=== PATIENT | male | born 1950 | race Caucasian/White ===

== ENCOUNTER 2021-06-07 06:40 | Day surgery (SDC) | payer MEDICARE, BC, SELFPAY ==
--- NOTE | 2021-06-07 | PATH_ITS ---
[facility] Accession Number: [id number] . 01 Material submitted: . PART A: colon - ASCENDING POLYP X1 PART B: hepatic flexure - HEPATIC FLEXURE POLYP PART C: sigmoid colon - SIGMOID POLYP X1 . 02 Diagnosis: A. Ascending Colon Polyp, Biopsy: Tubular adenoma. . B. Hepatic Flexure Polyp, Biopsy: Vegetable material. No tissue identified. . C. Sigmoid Colon Polyp, Biopsy: Tubular adenoma. MRV 06/09/2021 1030 Local . 02 Electronically signed: . Navarro Felix MD, PhD, Pathologist NPI- [id number] . 01 Gross description: . Part A: ASCENDING POLYP X1: Received in formalin is 1 fragment(s) of gentile, soft tissue measuring 0.4 x 0.4 x 0.2 cm submitted entirely in 1 cassette(s) Part B: HEPATIC FLEXURE POLYP: Received in formalin are minute fragment(s) of gentile, soft tissue measuring 0.3 x 0.3 x 0.1 cm in aggregate submitted entirely in 1 cassette(s) Part C: SIGMOID POLYP X1: Received in formalin is 1 fragment(s) of gentile, soft tissue measuring 0.5 x 0.3 x 0.2 cm submitted entirely in 1 cassette(s) /QBJ 06/08/2021 0638 Local . 02 Pathologist provided ICD-10: D12.2, D12.5 . 02 CPT . 001686, [id number], [id number] Performed at: 01 [facility] [address], [place], [place] [id number] MD Shai Winter MD Phone: [phone] Performed at: [address] [facility] [address] [address] [id number] MD Rosaura Aguilar MD Phone: [phone]
[2021-06-07] MEDS: SODIUM CHLORIDE 0.9% 1,000 ML 84 ML IV (07:19)
[2021-06-07 07:25] VITALS: BMI 30.1
[2021-06-07 07:30] VITALS: BP 123/76; PULSE 76; RESP 18; TEMP 36.6; O2SAT 98
[2021-06-07 07:39] LABS: COVID19 -Nasal RAPID Negative (Negative)
[2021-06-07 07:40] VITALS: BMI 30.1
--- NOTE | 2021-06-07 08:02 | PM.HP.1 ---
History of Present Illness History of Present Illness Date Patient Seen: 06/07/21 Time Patient Seen: 08:02 Chief complaint: SCREENING COLONOSCOPY Narrative: Asymptomatic Patient History Medical History Gout Hypothyroidism Family & Social History Social History: household members spouse Tobacco & Substance use: Smoking Status Former smoker alcohol intake current alcohol intake frequency a few times a month Substance Use Type does not use Meds Home Medications and Allergies Home Medications Medication Instructions Recorded Confirmed Type allopurinol 300 mg tablet 300 mg PO DAILY 06/06/21 06/07/21 History cyclobenzaprine 10 mg tablet 10 mg PO PRN PRN 06/06/21 06/07/21 History levothyroxine 175 mcg tablet 175 mcg PO DAILY 06/06/21 06/07/21 History Allergies Allergy/AdvReac Type Severity Reaction Status Date / Time No Known Drug Allergies Allergy Verified 06/07/21 07:13 Review of Systems Review of Systems ROS: Yes All systems reviewed with the patient and are negative except as otherwise documented Exam Vital Signs (past 8 hours): Oxygen Delivery Method Room Air Const General: cooperative and comfortable Orientation: alert HENMT Head: normocephalic Ears: external ears normal Nose: external nose normal Face and sinus: normal facial exam Mouth: oral mucosae normal Eyes General: appearance normal, both eyes and all related structures Neck Neck: normal visual inspection Chest Chest: normal inspection of the chest Resp Effort & Inspection: normal respiratory effort Cardio Rate: regular rate GI Inspection: normal to inspection Skin General: no rashes or lesions noted and No jaundice Neuro General: patient alert and moves all extremities Cognition: normal cognition Speech: speech normal Extrem General: no pedal edema Psych Appearance: grossly normal Objective Labs Labs: Laboratory Results - last 24 hr 06/07/21 07:08 SARS-CoV-2 (PCR) Negative Assessment & Plan Assessment & Plan narrative: 71-year-old male here for colon cancer screening. Colonoscopy is planned for today. Time Spent With Patient Critical Care time: I spent a total of [] minutes of critical care time on this patient's care today; this time is exclusive of procedural time.
--- NOTE | 2021-06-07 08:04 | PM.PREOP ---
Pre-operative Note COVID-19 COVID-19 status: Negative Result date/Date tested (Pos, Neg/Pending): 06/07/21 Interval Note History & Physical reviewed/Exam performed by Physician: Yes Changes to H&P: No H&P completed within 30 days and has changed as indicated here:: Today ASA Class (for procedural sedation): II
--- NOTE | 2021-06-07 08:54 | P.OP.COLON_ITS ---
Operative Date/Time/Diagnoses Date of procedure: 06/07/21 Time of procedure: 08:54 Pre-op diagnosis: Colon cancer screening Post-op diagnosis: same Procedure & Clinicians Study performed: Colonoscopy with hot and cold snare polypectomy Same procedure as scheduled: Yes Indications: Colon cancer screening Surgeon: Mo London Procedure Notes SCOAP/Timeout: Done Procedure in detail: After the risks and benefits were explained, written and verbal informed consent was obtained. The patient was brought into the procedure room and placed into the left lateral decubitus position. Conscious sedation medication was applied as per nursing documentation. Digital rectal examination was accomplished. The scope was introduced into the patient and advanced under direct visualization to the cecum as identified by the appendiceal orifice and ileocecal valve. The scope was slowly withdrawn to carefully examine the mucosa for any defects or lesions. Comprehensive imaging was accomplished throughout the rectum including the dentate line. The colon was decompressed, the scope was then removed from the patient who tolerated the procedure well. Scope withdrawal time: 21 minutes Sedation minutes: 39 Complications: none Impression: Grade 1 internal hemorrhoids were noted. There was some diverticulosis in the sigmoid. There was a diminutive polyp in the ascending and hepatic flexure region removed with cold snare. There was a slightly larger perhaps 6-7 mm polyp sessile in the sigmoid removed with hot snare. No additional pathology was appreciated throughout. Withdrawal time was prolonged secondary to a search for the final polyp in the sigmoid which was seen initially on entry and d ifficult to find on the way out Endoscopic diagnosis 1. Colon polyps 2. Grade 1 hemorrhoids 3. Diverticulosis Post-procedure Plan for aftercare: 1. Await histopathology 2. If all the polyps return as adenomatous, repeat colonoscopy will be suggested for 3 years Disposition: PACU
[2021-06-07 08:57] VITALS: BP 113/69; PULSE 66; RESP 21; TEMP 36.1; O2SAT 97
[2021-06-07 09:02] VITALS: BP 106/63; PULSE 81; RESP 21; O2SAT 96
[2021-06-07 09:07] VITALS: BP 95/60; PULSE 67; RESP 239; O2SAT 7
[2021-06-07 09:24] VITALS: BP 108/66; PULSE 65; RESP 23; O2SAT 97
== END 2021-06-07 09:32 | disposition home or self-care (01) ==
PROVIDERS: PCP Nurse Practitioner; Referring Provider Internal Medicine Gastroenterology; Visit Provider Internal Medicine Gastroenterology
PROC: 0DJD8ZZ Inspection of Lower Intestinal Tract, Via Natural or Artificial Opening Endoscopic (ICD-10-PCS; CPT 45378; principal; 2021-06-07 08:30)
DX: Z12.11 Encounter for screening for malignant neoplasm of colon (principal); Z20.822 Contact with and (suspected) exposure to COVID-19; I10 Essential (primary) hypertension; K57.30 Diverticulosis of large intestine without perforation or abscess without bleeding; K64.0 First degree hemorrhoids; D12.2 Benign neoplasm of ascending colon; D12.5 Benign neoplasm of sigmoid colon
CPT/HCPCS: 45385; 87635; J2704